=== PATIENT | female | born 1975 | race Caucasian/White ===

== ENCOUNTER 2019-07-20 16:38 | Emergency (ER) | payer SELFPAY ==
[2019-07-20] MEDS ORDERED: Oseltamivir 75 MG CAP ONE (16:55)
== END 2019-07-20 17:00 | disposition home or self-care (01) ==
LOC: BURERS 16:38
DX: J11.1 Influenza due to unidentified influenza virus with other respiratory manifestations (principal); E11.9 Type 2 diabetes mellitus without complications; Z79.899 Other long term (current) drug therapy
CPT/HCPCS: 99283